=== PATIENT | male | born 1980 | race Caucasian/White ===

== ENCOUNTER 2017-09-27 04:57 | Emergency (ER) | payer OTHER ==
[~2017-09-27] VITALS: Ht 193 cm; Wt 145.1 kg
[~2017-09-27 04:57] MED LIST: ALBUTEROL0.09 MG/A2; AMOXICILLIN500 MG PO; AMOXIL500 MG PO; ANAPROX DS550 MG PO; AUGMENTIN 875875 MG PO; AVPAK PRIMIDON250 M1 PO; BACTRIM DS 8001 TA1 PO; BACTROBAN CREAM15 GM T; CIPRO500 MG PO; CIPRODEX 0.3%-7.5 ML OT; CIPROFLOXACIN500 MG PO; CLARITIN10 MG PO; CLINDAMYCIN HC300 MG PO; DARVOCET N 1001 TAB PO; DILANTIN100 MG PO; FLEXERIL10 MG PO; GEMCOR600 MG PO; HYDROXYZINE HCL25 MG PO; KEFLEX500 M1 PO; KEFLEX500 MG PO; KEPPRA500 MG PO; LIDEX0.05% T; LIPITOR10 MG PO; MEDROL DOSEPAK4 MG PO; MOTRIN800 MG PO; NKHM; PROVENTIL0.09 MG/AC IH; SEIZURE MED; SEPTRA DS 800 M1 TAB PO; TOPAMAX200 MG PO; TRAMADOL HCL50 MG PO; VICODIN 5/500 505 MG PO; VICODIN 500 MG-1 TAB PO; XANAX1 MG PO; ZITHROMAX Z PA250 MG PO; ZOFRAN ODT4 MG SL; ZONEGRAN100 MG PO; [UNRECOGNIZED DRUG - REMARK] PO
[2017-09-27] MEDS ORDERED: FLONASE ALLERG9.9 ML NAS (05:48)
[2017-09-27] MEDS ORDERED: CLARITIN-D 121 EACH PO (05:48)
== END 2017-09-27 05:57 | disposition home or self-care (01) ==
LOC: ED 04:57
DX: J32.9 Chronic sinusitis, unspecified (principal); Z79.899 Other long term (current) drug therapy

== ENCOUNTER 2018-11-02 15:05 | Emergency (ER) | payer OTHER ==
[~2018-11-02] VITALS: Ht 190.5 cm; Wt 149.7 kg
[~2018-11-02 15:05] MED LIST changes: +CLARITIN-D 121 EACH PO; +FLONASE ALLERG9.9 ML NAS
[2018-11-02] MEDS ORDERED: CEPHALEXIN500 M1 PO (15:52)
== END 2018-11-02 16:59 | disposition home or self-care (01) ==
LOC: ED 15:05
DX: S01.83XA Puncture wound without foreign body of other part of head, initial encounter (principal); R11.2 Nausea with vomiting, unspecified; Z79.899 Other long term (current) drug therapy; W20.8XXA Other cause of strike by thrown, projected or falling object, initial encounter; Y93.89 Activity, other specified; Y92.89 Other specified places as the place of occurrence of the external cause; Y99.8 Other external cause status

== ENCOUNTER 2019-04-04 09:41 | Emergency (ER) | payer OTHER ==
[~2019-04-04] VITALS: Ht 193 cm; Wt 154.2 kg
--- NOTE | ~2019-04-04 | EKG ---
[place], [place] ELECTROCARDIOGRAM REPORT NAME: ES SALAZAR II UNIT #: [id number] ROOM: DOCTOR: TRISH DRAFT REPORT BIRTHDATE: [birth year] [facility] Test Date: 2019-04-04 Test Time: 10:02:13 Pat Name: ES SALAZAR Department: Room: 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
[~2019-04-04 09:41] MED LIST changes: +CEPHALEXIN500 M1 PO
[2019-04-04 10:05] LABS: BASO % 0.4 % (0.0-1.0); EOS # 0.2 10*3/uL (0.0-0.4); EOS % 1.6 % (1.0-4.0); HEMATOCRIT 46.2 % (42.0-52.0); HEMOGLOBIN 16.1 g/dl (14.0-18.0); LYMPH # 2.9 10*3/uL (1.3-4.4); LYMPH % 29.7 % (27.0-41.0); MEAN CELL VOLUME 93.3 fl (80.0-94.0); MEAN CORPUSCULAR HGB 32.5 pg (27.0-31.0); MEAN CORPUSCULAR HGB CONC 34.8 g/dl (33.0-37.0); MEAN PLATELET VOLUME 9.9 fl (9.6-12.3); MONO # 0.6 10*3/uL (0.1-1.0); MONO % 6.6 % (3.0-9.0); NEUT # 5.9 10*3/uL (2.3-7.9); NEUT % 60.8 % (47.0-73.0); PLATELET COUNT AUTOMATED 311 10*3/uL (130-400); RED BLOOD COUNT 4.95 10*6/uL (4.50-5.90); RED CELL DISTRI WIDTH 12.2 % (0-14.5); WHITE BLOOD COUNT 9.7 10*3/uL (4.8-10.8)
[2019-04-04 10:15] LABS: ACT PARTIAL THROMBO TIME 27.9 SECONDS (20.0-32.1); INTERNATIONAL NORM RATIO 0.9 (2.0-3.5)
[2019-04-04 10:21] LABS: ALBUMIN 3.9 gm/dl (3.1-4.5); ALKALINE PHOSPHATASE 50 U/L (45-117); BUN 11 mg/dl (7-24); CHLORIDE 106 mmol/L (98-107); CREATININE 1.04 mg/dL (0.70-1.30); POTASSIUM 3.6 mmol/L (3.5-5.1); SGOT/AST 51 IU/L (3-35); SGPT/ALT 86 U/L (12-78); SODIUM 138 mmol/L (136-145); TOTAL PROTEIN 7.7 gm/dL (6.4-8.2)
[2019-04-04 10:25] LABS: TROPONIN I < 0.015 ng/ml (<0.045)
== END 2019-04-04 14:47 | disposition short-term general hospital (02) ==
LOC: ED 09:41
PROVIDERS: Emergency Medicine
DX: R53.1 Weakness (principal); R13.10 Dysphagia, unspecified; R51 Headache; R56.9 Unspecified convulsions; Z79.899 Other long term (current) drug therapy; Z79.2 Long term (current) use of antibiotics

== ENCOUNTER 2021-03-11 20:52 | Emergency (ER) | payer OTHER ==
[~2021-03-11] VITALS: Ht 190.5 cm; Wt 152.9 kg
[2021-03-11] MEDS ORDERED: METFORMIN HYDR500 MG PO (21:09)
[2021-03-11 22:21] LABS: BASO % 0.4 % (0.0-1.0); EOS # 0.1 10*3/uL (0.0-0.4); EOS % 0.9 % (1.0-4.0); HEMATOCRIT 42.7 % (42.0-52.0); LYMPH # 1.5 10*3/uL (1.3-4.4); LYMPH % 13.5 % (27.0-41.0); MEAN CELL VOLUME 89.9 fl (80.0-94.0); MEAN CORPUSCULAR HGB 30.3 pg (27.0-31.0); MEAN CORPUSCULAR HGB CONC 33.7 g/dl (33.0-37.0); MEAN PLATELET VOLUME 10.5 fl (9.6-12.3); MONO # 0.8 10*3/uL (0.1-1.0); NEUT # 8.5 10*3/uL (2.3-7.9); PLATELET COUNT AUTOMATED 248 10*3/uL (130-400); RED BLOOD COUNT 4.75 10*6/uL (4.50-5.90); RED CELL DISTRI WIDTH 12.5 % (0-14.5)
[2021-03-11 22:35] LABS: ALBUMIN 3.5 gm/dl (3.1-4.5); ALKALINE PHOSPHATASE 61 U/L (45-117); BUN 10 mg/dl (7-24); CHLORIDE 105 mmol/L (98-107); CREATININE 0.92 mg/dL (0.70-1.30); SGOT/AST 107 IU/L (3-35); SGPT/ALT 164 U/L (12-78); SODIUM 138 mmol/L (136-145); TOTAL PROTEIN 7.4 gm/dL (6.4-8.2)
== END 2021-03-12 02:46 | disposition home or self-care (01) ==
LOC: ED 20:52
PROVIDERS: Emergency Medicine
DX: S00.01XA Abrasion of scalp, initial encounter (principal); R56.9 Unspecified convulsions; M25.561 Pain in right knee; M79.642 Pain in left hand; Z79.899 Other long term (current) drug therapy; W01.198A Fall on same level from slipping, tripping and stumbling with subsequent striking against other object, initial encounter; Y93.89 Activity, other specified; Y92.098 Other place in other non-institutional residence as the place of occurrence of the external cause; Y99.9 Unspecified external cause status

== ENCOUNTER 2021-06-12 12:05 | Emergency (ER) | payer OTHER ==
[~2021-06-12] VITALS: Ht 190.5 cm; Wt 158.8 kg
[~2021-06-12 12:05] MED LIST changes: +METFORMIN HYDR500 MG PO
[2021-06-12 12:44] LABS: BASO # 0.1 10*3/uL (0.0-0.1); BASO % 0.6 % (0.0-1.0); EOS # 0.2 10*3/uL (0.0-0.4); EOS % 2.2 % (1.0-4.0); HEMATOCRIT 46.6 % (42.0-52.0); LYMPH # 2.8 10*3/uL (1.3-4.4); LYMPH % 26.8 % (27.0-41.0); MEAN CELL VOLUME 92.3 fl (80.0-94.0); MEAN CORPUSCULAR HGB 31.5 pg (27.0-31.0); MEAN CORPUSCULAR HGB CONC 34.1 g/dl (33.0-37.0); MEAN PLATELET VOLUME 10.3 fl (9.6-12.3); MONO # 0.7 10*3/uL (0.1-1.0); MONO % 6.8 % (3.0-9.0); NEUT # 6.5 10*3/uL (2.3-7.9); NEUT % 62.2 % (47.0-73.0); PLATELET COUNT AUTOMATED 314 10*3/uL (130-400); RED BLOOD COUNT 5.05 10*6/uL (4.50-5.90); RED CELL DISTRI WIDTH 12.4 % (0-14.5); WHITE BLOOD COUNT 10.4 10*3/uL (4.8-10.8)
[2021-06-12 13:01] LABS: ALBUMIN 3.9 gm/dl (3.1-4.5); ALKALINE PHOSPHATASE 60 U/L (45-117); BUN 10 mg/dl (7-24); CHLORIDE 104 mmol/L (98-107); POTASSIUM 3.9 mmol/L (3.5-5.1); SGOT/AST 86 IU/L (3-35); SGPT/ALT 127 U/L (12-78); SODIUM 138 mmol/L (136-145)
[2021-06-12 14:10] LABS: BILIRUBIN Negative (Negative); BLOOD Negative (Negative); CLARITY Clear (Clear); COLOR Yellow (Yellow); GLUCOSE 3+ (Negative); KETONE Trace (Negative); LEUKO ESTERASE Negative (Negative); NITRITE Negative (Negative); UROBILINOGEN 0.2 E.U./dl (0.0-1.0)
[2021-06-12 14:25] LABS: BACTERIA TRACE; MUCOUS 1+; WBC 0-2 wbc/hpf (0-5)
== END 2021-06-12 15:59 | disposition home or self-care (01) ==
LOC: ED 12:05
PROVIDERS: Physician Assistant
DX: G40.909 Epilepsy, unspecified, not intractable, without status epilepticus (principal)

== ENCOUNTER 2021-12-10 13:18 | Emergency (ER) | payer OTHER ==
[~2021-12-10] VITALS: Ht 190.5 cm; Wt 167.8 kg
[2021-12-10] MEDS ORDERED: FYCOMPA PO (13:37)
[2021-12-10] MEDS ORDERED: ATORVASTATIN CA40 M1 PO (13:37)
[2021-12-10] MEDS ORDERED: TRIMOX,POL250 MG/5 M PO (14:47)
== END 2021-12-10 14:55 | disposition home or self-care (01) ==
LOC: ED 13:18
DX: J03.90 Acute tonsillitis, unspecified (principal)

== ENCOUNTER 2022-12-10 19:59 | Emergency (ER) | payer MEDICAID ==
[~2022-12-10] VITALS: Ht 193 cm; Wt 162.4 kg
[~2022-12-10 19:59] MED LIST changes: +ATORVASTATIN CA40 M1 PO; +FYCOMPA PO; +TRIMOX,POL250 MG/5 M PO
[2022-12-10] MEDS ORDERED: CEPHALEXIN500 M1 PO (21:14)
[2022-12-14] MEDS ORDERED: ZESTRIL20 MG PO (21:36)
[2022-12-14] MEDS ORDERED: KEFLEX 500 MG E2 CAP PO (21:36)
[2022-12-14] MEDS ORDERED: LANTUS SOL100 UNIT/1 SC (21:37)
== END 2022-12-10 21:24 | disposition home or self-care (01) ==
LOC: ED 19:59
DX: S01.01XA Laceration without foreign body of scalp, initial encounter (principal); E78.00 Pure hypercholesterolemia, unspecified; E11.9 Type 2 diabetes mellitus without complications; W22.8XXA Striking against or struck by other objects, initial encounter; Y93.89 Activity, other specified; Y92.89 Other specified places as the place of occurrence of the external cause; Y99.8 Other external cause status

== ENCOUNTER 2023-07-15 23:08 | Emergency (ER) | payer MEDICAID ==
[~2023-07-15] VITALS: Ht 190.5 cm; Wt 157.9 kg
[~2023-07-15 23:08] MED LIST changes: +KEFLEX 500 MG E2 CAP PO; +LANTUS SOL100 UNIT/1 SC; +ZESTRIL20 MG PO
[2023-07-15 23:35] LABS: BASO # 0.1 10*3/uL (0.0-0.1); BASO % 0.6 % (0.0-1.0); EOS # 0.2 10*3/uL (0.0-0.4); HEMATOCRIT 47.2 % (42.0-52.0); LYMPH # 2.9 10*3/uL (1.3-4.4); LYMPH % 29.8 % (27.0-41.0); MEAN CELL VOLUME 91.5 fl (80.0-94.0); MEAN CORPUSCULAR HGB 31.2 pg (27.0-31.0); MEAN CORPUSCULAR HGB CONC 34.1 g/dl (33.0-37.0); MEAN PLATELET VOLUME 10.6 fl (9.6-12.3); MONO # 0.8 10*3/uL (0.1-1.0); MONO % 8.1 % (3.0-9.0); NEUT # 5.7 10*3/uL (2.3-7.9); NEUT % 58.5 % (47.0-73.0); PLATELET COUNT AUTOMATED 274 10*3/uL (130-400); RED BLOOD COUNT 5.16 10*6/uL (4.50-5.90); RED CELL DISTRI WIDTH 11.8 % (0-14.5); WHITE BLOOD COUNT 9.7 10*3/uL (4.8-10.8)
[2023-07-15 23:48] LABS: ACT PARTIAL THROMBO TIME 25.1 SECONDS (20.0-32.1)
[2023-07-15 23:55] LABS: ALKALINE PHOSPHATASE 59 U/L (46-116); BUN 14 mg/dl (9-23); CHLORIDE 101 mmol/L (98-107); LIPASE 51 U/L (12-53); SGPT/ALT 273 U/L (5-49); TOTAL PROTEIN 7.2 gm/dL (6.0-8.0)
== END 2023-07-16 02:28 | disposition home or self-care (01) ==
LOC: ED 23:08
PROVIDERS: Internal Medicine
DX: G40.909 Epilepsy, unspecified, not intractable, without status epilepticus (principal); Z79.2 Long term (current) use of antibiotics; Z79.899 Other long term (current) drug therapy; Z79.4 Long term (current) use of insulin

== ENCOUNTER → 2023-10-10 | Outpatient (CLI) | payer MEDICAID ==
[2023-10-10 11:09] LABS: BILIRUBIN Negative (Negative); BLOOD Trace-Lysed (Negative); CLARITY Clear (Clear); COLOR Yellow (Yellow); GLUCOSE 3+ (Negative); KETONE Negative (Negative); LEUKO ESTERASE Negative (Negative); NITRITE Negative (Negative); PH 5.5 (4.5-8.0); SPECIFIC GRAVITY >= 1.030 (1.001-1.030)
[2023-10-10 11:28] LABS: BACTERIA 1+; EPITHELIAL CELLS 0-2; HYALINE CAST 41-50; MUCOUS 1+
[2023-10-10 11:37] LABS: ALKALINE PHOSPHATASE 63 U/L (46-116); BUN 9 mg/dl (9-23); CHLORIDE 99 mmol/L (98-107); CHOLESTEROL 225 mg/dL (<200); POTASSIUM 3.6 mmol/L (3.4-5.1); SGPT/ALT 123 U/L (5-49); TOTAL PROTEIN 7.5 gm/dL (6.0-8.0); TRIGLYCERIDES 723 mg/dl (<150)
== END | disposition home or self-care (01) ==
LOC: LAB 10:35
PROVIDERS: ATTEND Internal Medicine
DX: E11.65 Type 2 diabetes mellitus with hyperglycemia (principal); E78.5 Hyperlipidemia, unspecified; E55.9 Vitamin D deficiency, unspecified

== ENCOUNTER 2024-07-14 11:47 | Emergency (ER) | payer MEDICAID ==
[~2024-07-14] VITALS: Ht 182.8 cm; Wt 146.5 kg
[2024-07-14] MEDS ORDERED: SODIUM CHLORIDE 0.9% 1,000 ML IV ONE (11:55)
[2024-07-14] MEDS ORDERED: DIAZEPAM 5 MG TAB PO ONE (11:55)
[2024-07-14 12:09] LABS: BASO # 0.1 10*3/uL (0.0-0.1); BASO % 0.6 % (0.0-1.0); EOS # 0.2 10*3/uL (0.0-0.4); EOS % 2.1 % (1.0-4.0); HEMATOCRIT 48.7 % (42.0-52.0); MEAN CELL VOLUME 90.5 fl (80.0-94.0); MEAN CORPUSCULAR HGB 30.5 pg (27.0-31.0); MEAN CORPUSCULAR HGB CONC 33.7 g/dl (33.0-37.0); MEAN PLATELET VOLUME 10.9 fl (9.6-12.3); MONO # 0.6 10*3/uL (0.1-1.0); MONO % 7.2 % (3.0-9.0); NEUT % 47.5 % (47.0-73.0); PLATELET COUNT AUTOMATED 317 10*3/uL (130-400); RED BLOOD COUNT 5.38 10*6/uL (4.50-5.90); RED CELL DISTRI WIDTH 12.6 % (0-14.5); WHITE BLOOD COUNT 8.4 10*3/uL (4.8-10.8)
[2024-07-14 12:30] LABS: BUN 12 mg/dl (9-23); CHLORIDE 104 mmol/L (98-107); POTASSIUM 4.2 mmol/L (3.4-5.1)
== END 2024-07-14 13:20 | disposition left against medical advice (07) ==
LOC: ED 11:47
PROVIDERS: Emergency Medicine
DX: R56.9 Unspecified convulsions (principal); E11.9 Type 2 diabetes mellitus without complications; I10 Essential (primary) hypertension; E78.5 Hyperlipidemia, unspecified; E78.00 Pure hypercholesterolemia, unspecified; Z53.29 Procedure and treatment not carried out because of patient's decision for other reasons

== ENCOUNTER 2024-08-01 22:45 | Emergency (ER) | payer MEDICAID ==
[~2024-08-01] VITALS: Ht 193 cm; Wt 163.3 kg
[2024-08-02] MEDS ORDERED: NAPROXEN250 MG PO (01:15)
[2024-08-02] MEDS ORDERED: Ketorolac Tromethamine 60 MG/2 ML VIAL IM ONE (01:15)
[2024-08-02] MEDS ORDERED: Lidocaine Hydrochloride 15 ML UDC PO ONE (01:35)
== END 2024-08-02 01:20 | disposition home or self-care (01) ==
LOC: ED 22:45
DX: S83.91XA Sprain of unspecified site of right knee, initial encounter (principal); S00.93XA Contusion of unspecified part of head, initial encounter; S00.01XA Abrasion of scalp, initial encounter; S00.81XA Abrasion of other part of head, initial encounter; R56.9 Unspecified convulsions; R07.89 Other chest pain; M79.641 Pain in right hand; E78.00 Pure hypercholesterolemia, unspecified; E11.9 Type 2 diabetes mellitus without complications; X58.XXXA Exposure to other specified factors, initial encounter; Y93.89 Activity, other specified; Y92.009 Unspecified place in unspecified non-institutional (private) residence as the place of occurrence of the external cause; Y99.8 Other external cause status